=== PATIENT | female | born 1945 | race Caucasian/White ===

== ENCOUNTER → 2016-11-13 | Outpatient (CLI) | payer MEDICARE ==
--- NOTE | 2016-11-13 09:28 | REPMRS ---
Patient History The patient states she had a clinical breast exam in 11/04 Family history of unknown cancer in sister at age 50 or over. Benign stereotatic breast biopsy of the right breast, 2009. Benign core biopsy of the left breast. Digital Woman Screen Mammo: November 13, 2016 - Exam #: [id number] Bilateral CC and MLO view(s) were taken. Technologist: Lisa Dunne, Technologist Prior study comparison: April 24, 2016, right breast digital mammo diagnostic unilateral, performed at [facility]. August 30, 2015, digital mammo diagnostic bilateral, performed at [facility]. FINDINGS: There are scattered fibroglandular densities. There is a needle biopsy marker clip in the right breast. There has been no change in the appearance of the mammogram from the prior studies. There is a mild amount of scattered fibroglandular density which is fairly symmetric. There is no interval development of dominant mass, architectural distortion, or clustered microcalcification suggestive of malignancy. ASSESSMENT: BI-RADS/ACR category 1 mammogram. Negative. Recommendation Routine screening mammogram in 1 year (for women over age 40). This mammogram was interpreted with the aid of an FDA-approved computer-aided dectection system. Electronically Signed By: Sunny Juares MD 11/13/16 0928
== END ==
LOC: M WHC 07:51
PROVIDERS: ATTEND Nurse Practitioner Family
DX: Z12.31 Encounter for screening mammogram for malignant neoplasm of breast (principal)

== ENCOUNTER → 2017-10-14 | Outpatient (CLI) | payer MEDICARE | LOC: M WHC 08:29 | DX: Z01.419 Encounter for gynecological examination (general) (routine) without abnormal findings (principal); Z12.31 Encounter for screening mammogram for malignant neoplasm of breast (principal); N95.9 Unspecified menopausal and perimenopausal disorder; M81.0 Age-related osteoporosis without current pathological fracture; Z12.12 Encounter for screening for malignant neoplasm of rectum | CPT/HCPCS: 77080 ==

== ENCOUNTER → 2017-12-02 | Outpatient (CLI) | payer MEDICARE | LOC: M WHC 08:53 | DX: Z12.31 Encounter for screening mammogram for malignant neoplasm of breast (principal) | CPT/HCPCS: 77067 ==

== ENCOUNTER → 2019-01-27 | Outpatient (CLI) | payer MEDICARE ==
--- NOTE | 2019-01-27 12:15 | REPMRS ---
Patient History The patient states she had a clinical breast exam in 01/2019. Family history of endometrial cancer at age 50 or over in sister, breast cancer at age 53 in daughter. Benign stereotatic breast biopsy of the right breast, 2009. Benign core biopsy of the left breast. No Hormone Replacement Therapy 3D TOMOSYNTHESIS WAS PERFORMED. The [facility] lifetime risk for breast cancer is 6.1%. Digital Woman Screen Mammo: January 27, 2019 - Exam #: [id number] Bilateral CC and MLO view(s) were taken. Technologist: Yaritza Quevedo, Technologist Prior study comparison: December 02, 2017, bilateral digital woman screen mammo performed at [facility]. November 13, 2016, digital woman screen mammo performed at [facility]. FINDINGS: There are scattered fibroglandular densities. There has been no change in the appearance of the mammogram from the prior studies. There is a mild amount of residual fibroglandular tissue which is fairly symmetric. There is no interval development of dominant mass, architectural distortion, or clustered microcalcification suggestive of malignancy. Assessment: BI-RADS/ACR category 1 mammogram. Negative Mammogram. Recommendation Routine screening mammogram in 1 year (for women over age 40). This mammogram was interpreted with the aid of an FDA-approved computer-aided dectection system. Electronically Signed By: Andrzej Alicia MD 01/27/19 0958
== END ==
LOC: M WHC 10:23
PROVIDERS: ATTEND Nurse Practitioner Family
DX: Z12.31 Encounter for screening mammogram for malignant neoplasm of breast (principal); Z80.49 Family history of malignant neoplasm of other genital organs; Z80.3 Family history of malignant neoplasm of breast; Z86.018 Personal history of other benign neoplasm
CPT/HCPCS: 77063; 77067; G0463

== ENCOUNTER → 2020-02-22 | Outpatient (CLI) | payer MEDICARE ==
--- NOTE | 2020-03-13 13:55 | DEXA ---
AP SPINE L1 - L4 1.060 -1.1 0.7 LT FEMUR TOTAL 0.945 -0.5 1.2 LT NECK 0.868 -1.2 0.7 RT FEMUR TOTAL 0.964 -0.3 1.4 RT NECK 0.909 -0.9 1.0 TOTAL BODY TOTAL OTHER COMMENTS: Normal bone densitometry of the right hip. There is low bone density of the spine. There is low bone density of the left hip. The decreased density of the spine does represent a significant change. The decreased density of the left hip does represent significant change. The increased density of the right hip does not represent significant change. The density of the spine has increased 7.2% since the initial exam on 08/18/2002. The decreased 2.9% since the most recent exam on 10/14/2017. The density of the left hip has decreased 1.7% since the initial exam on 08/18/2002. The density of the left hip has decreased 4.9% since the most recent exam on 10/14/2017. The density of the right hip has decreased 1.8% since the initial exam on 08/18/2002. The density of the right hip has increased 0.4% since the most recent exam on 10/14/2017. FOLLOW-UP: Recommendation for the next bone density exam: 2 years. CARLYN
--- NOTE | 2020-03-20 10:58 | REP ---
BILATERAL SCREENING MAMMOGRAM WITH 3D TOMOSYNTHESIS, DIAGNOSTIC MAMMOGRAM RIGHT BREAST, AND RIGHT BREAST ULTRASOUND HISTORY: Palpable lump right breast for three months. Breast cancer at age 53 in daughter. [facility] lifetime risk of breast cancer 5.6%. COMPARISON: Mammogram 01/27/2019, as well as other prior exams. TECHNIQUE: ML and CC views of both breasts are performed with 3D tomosynthesis. Additional spot compression views are performed at the site of the palpable lump inferomedially in the right breast. The area is marked on the skin with a triangular marker. FINDINGS: Moderate fibroglandular tissue appears unchanged compared to prior studies. No new mass or architectural distortion is seen. No clustered microcalcifications are seen. The metallic clip is again seen in the upper outer quadrant of the right breast from a benign stereotactic biopsy in 2009. Real-time sonographic evaluation of the right breast performed at the site of the palpable lump. No cystic or solid nodule is seen. IMPRESSION: ACR 1 negative. There is no evidence of mass or clustered microcalcifications bilaterally. There is no mammographic or sonographic evidence of a mass at the site of the reported palpable lump inferomedially in the right breast. A negative mammogram and ultrasound should not deter a biopsy if there is a clinically suspicious palpable mass present. Clinical correlation and follow-up recommended. Recommend follow-up mammogram in one year. This mammogram was interpreted with the aid of an FDA approved computer-aided detection system. Patient states her most recent clinical breast exam was in January 2020. Patient letter 2. ANATOLYD
== END ==
LOC: M WHC 12:48
PROVIDERS: ATTEND Family Medicine
DX: N63.15 Unspecified lump in the right breast, overlapping quadrants (principal); M85.9 Disorder of bone density and structure, unspecified; Z80.3 Family history of malignant neoplasm of breast; Z78.0 Asymptomatic menopausal state
CPT/HCPCS: 76642; 77066; 77080; G0279